=== PATIENT | male | born 1990 | race African-American/Black ===

== ENCOUNTER 2021-02-03 14:13 | Emergency (ER) | payer OTHER ==
[~2021-02-03] VITALS: Ht 175.3 cm; Wt 75.0 kg
[2021-02-03] MEDS ORDERED: KETOROLAC 30MG/ML VIAL IV STA (16:49)
[2021-02-03] MEDS ORDERED: SODIUM CHLORIDE 0.9% 1,000 ML IV ONE (17:00)
[2021-02-03] MEDS ORDERED: MORPHINE SULFATE 4 MG/ML CPJ (NOT FOR IM USE) IV ONE (17:45)
[2021-02-03 17:53] LABS: HEMATOCRIT. 41.4 % (42.0-52.0); HEMOGLOBIN. 14.2 g/dL (14.0-18.0); MEAN CORPUSCULAR HEMOGLOBIN 28.9 pg (28.0-32.0); MEAN CORPUSCULAR VOLUME 84.1 fL (80.0-94.0); MEAN PLATELET VOLUME 7.8 fl (7.4-10.4); PLATELET 218 x1000/uL (130-400); RED BLOOD CELL COUNT 4.92 mill/uL (4.7-6.1); RED CELL DISTRIBUTION WIDTH 13.4 % (11.6-14.6)
[2021-02-03 18:01] LABS: CHLORIDE 108 mEq/L (98-107)
[2021-02-03 18:05] LABS: CLARITY URINE CLEAR (CLEAR); COLOR URINE YELLOW (YELLOW); KETONES URINE TRACE (NEGATIVE); LEUKOCYTE ESTERASE URINE NEGATIVE (NEGATIVE); NITRITE URINE NEGATIVE (NEGATIVE); OCCULT BLOOD URINE NEGATIVE (NEGATIVE); PH URINE >=9.0 (4.5-8.0); PROTEIN URINE TRACE (NEGATIVE); SPECIFIC GRAVITY URINE 1.022 (1.005-1.030)
[2021-02-03 19:12] LABS: PLATELET ESTIMATE NORMAL
[2021-02-03] MEDS ORDERED: NAPR-1176 MT (19:37)
[2021-02-03 20:31] VITALS: BP 140/72
[2021-02-03] MEDS ORDERED: IOHEXOL-300 100 ML BOTTLE ONE (21:36)
== END 2021-02-03 21:45 | disposition home or self-care (01) ==
LOC: EDBD 14:13 → ER 14:13
DX: N50.82 Scrotal pain (principal); Z85.46 Personal history of malignant neoplasm of prostate
CPT/HCPCS: 36415; 74177; 76870; 80053; 81003; 85025; 85651; 86140; 93976; 96361; 96374; 99285; J2270; J7030; Q9967; J1885

== ENCOUNTER 2021-08-27 17:45 | Emergency (ER) | payer OTHER ==
[~2021-08-27] VITALS: Ht 188 cm; Wt 75.0 kg
[~2021-08-27 17:45] MED LIST: NAPR-1176 MT
[2021-08-27] MEDS ORDERED: CEFTRIAXONE SODIUM 500 MG/VIAL IM ONE (18:30)
[2021-08-27] MEDS ORDERED: ONDANSETRON 4MG ODT PO ONE (18:30)
[2021-08-27] MEDS ORDERED: IBUPROFEN 400MG TABLET PO ONE (18:30)
[2021-08-27] MEDS ORDERED: LIDOCAINE HCL 1% 20ML VIAL (Pyxis) INJ INFIL ONE (18:30)
[2021-08-27 19:02] LABS: BASOPHILS % 0.4 % (0.0-2.0); EOSINOPHILS % 2.1 % (0.0-5.0); HEMATOCRIT. 46.4 % (42.0-52.0); HEMOGLOBIN. 14.9 g/dL (14.0-18.0); LYMPHOCYTES % 35.5 % (20.0-50.0); MEAN CORPUSCULAR VOLUME 87.1 fL (80.0-94.0); MEAN PLATELET VOLUME 7.6 fl (7.4-10.4); PLATELET 284 x1000/uL (130-400); RED BLOOD CELL COUNT 5.32 mill/uL (4.7-6.1); RED CELL DISTRIBUTION WIDTH 13.2 % (11.6-14.6)
[2021-08-27 19:29] LABS: CHLORIDE 109 mEq/L (98-107)
[2021-08-27 19:54] VITALS: BP 150/105
[2021-08-27 21:04] LABS: CLARITY URINE CLOUDY (CLEAR); COLOR URINE YELLOW (YELLOW); KETONES URINE 1+ (NEGATIVE); LEUKOCYTE ESTERASE URINE NEGATIVE (NEGATIVE); NITRITE URINE NEGATIVE (NEGATIVE); OCCULT BLOOD URINE NEGATIVE (NEGATIVE); PROTEIN URINE NEGATIVE (NEGATIVE); SPECIFIC GRAVITY URINE 1.022 (1.005-1.030)
[2021-08-27] MEDS ORDERED: IBUP-2028 MT (21:10)
[2021-08-27] MEDS ORDERED: DOXY100C5 MT (21:10)
[2021-08-31 04:12] LABS: NEISSERIA GONORRHOEAE NAA Negative (Negative)
== END 2021-08-27 21:34 ==
LOC: ER 17:45
DX: N50.812 Left testicular pain (principal); R10.32 Left lower quadrant pain; R03.0 Elevated blood-pressure reading, without diagnosis of hypertension; E80.7 Disorder of bilirubin metabolism, unspecified
CPT/HCPCS: 36415; 74176; 76870; 80053; 81003; 83690; 85025; 87491; 87591; 93976; 96372; 99285; J0696; J3490; Q0162